=== PATIENT | female | born 1930 | race Hispanic/Latino ===

== ENCOUNTER 2016-06-04 19:31 | Emergency (ER) | payer MEDICARE, OTHER ==
[2016-06-04 20:07] VITALS: RESP 16
[2016-06-04] MEDS ORDERED: TDAP Vaccine 0.5 mL Syr IM ONE (20:34)
--- NOTE | 2016-06-04 20:37 | ED PDOC ---
Arrival/HPI - General Historian: Patient <Larry Villa - Last Filed: 06/04/16 23:35> <[place] - Last Filed: 06/04/16 23:47> - General Chief Complaint: Abnormal Skin Integrity Time Seen by Provider: 06/04/16 20:28 - History of Present Illness Narrative History of Present Illness (Text): 06/04/16 20:35 85 y/o female, pmh including htn/hyperlipidemia/hypothyroidism, not on any anticoagulant, last tetanus doesn't remember, c/o posterior head injury x 1 hour. Pt. stated that her shoe got caught, fall on the posterior head, no neck or back injury, no dizziness, no chest pain or shortness of breath, no palpitation, no numbness or tingling, no change in vision, no LOC, no neck or back pain, no other medical or psychological complaints. (Larry Villa) Past Medical History - Provider Review Nursing Documentation Reviewed: Yes - Cardiac Hx Hypertension: Yes - Pulmonary Hx Respiratory Disorders: No - Neurological Hx Neurological Disorder: No - HEENT Hx HEENT Disorder: No - Renal Hx Renal Disorder: No - Endocrine/Metabolic Other/Comment: THYROID DISEASE - Hematological/Oncological Hx Blood Disorders: No - Integumentary Hx Dermatological Disorder: No - Musculoskeletal/Rheumatological Hx Musculoskeletal Disorders: No - Gastrointestinal Hx Gastrointestinal Disorders: No - Genitourinary/Gynecological Hx Genitourinary Disorders: No - Psychiatric Hx Psychophysiologic Disorder: No Hx Substance Use: No <Larry Villa - Last Filed: 06/04/16 23:35> Family/Social History - Physician Review Nursing Documentation Reviewed: Yes Family/Social History: Unknown Family HX Smoking Status: Never Smoked Hx Alcohol Use: No Hx Substance Use: No <Larry Villa - Last Filed: 06/04/16 23:35> Allergies/Home Meds <Larry Villa - Last Filed: 06/04/16 23:35> <[place] - Last Filed: 06/04/16 23:47> Allergies/Adverse Reactions: Allergies No Known Allergies Allergy (Verified 06/04/16 20:00) Home Medications: Home Meds Medication Instructions Recorded Confirmed Diltiazem HCl [Diltiazem 24Hr Cd] 120 mg PO DAILY 06/04/16 06/04/16 Furosemide [Lasix] 20 mg PO BID 06/04/16 06/04/16 Levothyroxine [Synthroid] 50 mcg PO DAILY 06/04/16 06/04/16 Rosuvastatin Calcium [Crestor] 10 mg PO DAILY 06/04/16 06/04/16 Review of Systems - Review of Systems Constitutional: absent: Fatigue, Fevers Eyes: absent: Vision Changes ENT: absent: Hearing Changes Respiratory: absent: Cough, Sputum Cardiovascular: absent: Chest Pain Gastrointestinal: absent: Abdominal Pain, Nausea, Vomiting Skin: Laceration. absent: Rash, Pruritis, Skin Lesions, Abscess, Ulcer, Cellulitis Neurological: absent: Headache, Dizziness, Focal Weakness, Gait Changes, Speech Changes, Facial Droop, Disequilibrium, Seizure <Larry Villa Q - Last Filed: 06/04/16 23:35> Physical Exam Temperature: Afebrile Blood Pressure: Normal Pulse: Bradycardic Respiratory Rate: Normal Appearance: Positive for: Well-Appearing, Non-Toxic, Comfortable Pain Distress: None Mental Status: Positive for: Alert and Oriented X 3 - Systems Exam Head: Present: Normocephalic, Laceration (posterior occipital visible approx. 2cm irregular c-shaped laceration with no oozing or discharge) Pupils: Present: PERRL Extroacular Muscles: Present: EOMI Conjunctiva: Present: Normal Ears: Present: NORMAL TM, Normal Canal. No: Erythema Mouth: Present: Moist Mucous Membranes Nose (External): Present: Atraumatic. No: Abrasion, Contusion, Laceration Nose (Internal): Present: Normal Inspection, No Active Bleeding. No: Rhinorrhea , Septal Hematoma Neck: Present: Normal Range of Motion, Trachea Midline, Other (Cervical: no midline tenderness or step off, no paraspinal tenderness, no rash, no ecchymosis , FROM without limitation, sensation intact, motor 5/5, ). No: MIDLINE TENDERNESS, Paraspinal Tenderness, Lymphadenopathy Respiratory/Chest: Present: Clear to Auscultation, Good Air Exchange. No: Respiratory Distress, Accessory Muscle Use Cardiovascular: Present: Regular Rate and Rhythm, Normal S1, S2. No: Murmurs Abdomen: Present: Normal Bowel Sounds. No: Tenderness, Distention, Peritoneal Signs Back: Present: Normal Inspection, Other (Thoracic to LS spine: no midline tenderness or step off, no paraspinal tenderness, no rash, no ecchymosis, FROM without limitation, sensation intact, motor 5/5,). No: Midline Tenderness, Paraspinal Tenderness Upper Extremity: Present: Normal Inspection. No: Cyanosis, Edema Lower Extremity: Present: Normal Inspection. No: Edema Neurological: Present: GCS=15, CN II-XII Intact, Speech Normal Skin: Present: Warm, Dry, Normal Color. No: Rashes Psychiatric: Present: Alert, Oriented x 3, Normal Insight, Normal Concentration <Larry Villa - Last Filed: 06/04/16 23:35> Vital Signs Temp Pulse Resp BP Pulse Ox 06/04/16 20:02 98.8 F 58 L 16 150/70 95 Medical Decision Making - RAD Interpretation Resident Caregiver: Radiologist <Larry Villa - Last Filed: 06/04/16 23:35> <[place] - Last Filed: 06/04/16 23:47> ED Course and Treatment: 06/04/16 20:38 -CT head -tetanus -wound irrigate and clean, will staple 06/04/16 23:32 -CT Head show no acute findings. -sensation intact, motor 5/5, wound irrigate with 500cc of normal saline, clean with betadine, 1% lidocaine injected with 0.5cc locally, 5 kira with hemostasis obtained, bacitracin and gauze dressing, sensation intact, motor 5/5 , less than 1cc of blood loss. -Discharge home with bacitracin ointment, keep the dressing dry and clean, kira need to be removed by day 7, follow up with your own pmd within 2 days, return to the ER for any new or worsening signs or symptoms. (Larry Villa) - RAD Interpretation Radiology Orders: 06/04/16 20:34 HEAD W/O CONTRAST [CT] Stat Brain: There is moderate ventriculomegaly and cortical sulci widening consistent with generalized atrophy. There are areas of diminished density in the periventricular white matter bilaterally consistent with chronic small vessel ischemic changes. Espitia-white matter differentiation is intact and unremarkable. No evidence of acute intracranial bleed. Ventricles: See above. Bones/joints: No evidence of fracture. Soft tissues: Unremarkable. Sinuses: Unremarkable as visualized. No acute sinusitis. Mastoid air cells: Unremarkable as visualized. No mastoid effusion. IMPRESSION: 1. No evidence of fracture. No evidence of intracranial bleed. 2. Generalized atrophy and chronic small vessel ischemic changes. Thank you for allowing us to participate in the care of your patient. Dictated and Authenticated by: Nicolas Burkett MD 06/04/2016 11:24 PM Eastern Time ([place] & [place]) (Larry Villa) - Medication Orders Current Medication Orders: Discontinued Medications Tetanus/Reduced Diphtheria/Acell Pertussis (Boostrix Vaccine Inj) 0.5 ml IM .ONCE ONE Stop: 06/04/16 20:35 - PA / ACUTE CARE OCCUPATIONAL THERAPIST / Resident Statement JESUS has reviewed & agrees with the documentation as recorded. <Larry Villa - Last Filed: 06/04/16 23:35> - PA / ACUTE CARE OCCUPATIONAL THERAPIST / Resident Statement JESUS has reviewed & agrees with the documentation as recorded. JESUS has examined the patient and agrees with the treatment plan. <[place] - Last Filed: 06/04/16 23:47> Disposition/Present on Arrival - Present on Arrival Any Indicators Present on Arrival: No History of DVT/PE: No History of Uncontrolled Diabetes: No Urinary Catheter: No History of Decub. Ulcer: No History Surgical Site Infection Following: None - Disposition Have Diagnosis and Disposition been Completed?: Yes Disposition Time: 23:33 Patient Plan: Discharge <Larry Villa - Last Filed: 06/04/16 23:35> <[place] - Last Filed: 06/04/16 23:47> - Disposition Diagnosis: Fall, Laceration of scalp Disposition: HOME/ ROUTINE Patient Problems: Current Active Problems Problem Status Diagnosed Fall Acute Laceration of scalp Acute Condition: GOOD Additional Instructions: Discharge home with bacitracin ointment, keep the dressing dry and clean, kira need to be removed by day 7, follow up with your own pmd within 2 days, return to the ER for any new or worsening signs or symptoms. Prescriptions: Bacitracin 1 appl TP BID #1 tube Referrals: Heath Rogers MD [Primary Care Provider] - Follow up with primary Forms: WORK NOTE
[2016-06-04 23:50] VITALS: BP 163/80; PULSE 65; TEMP 98
[2016-06-04 23:51] VITALS: O2SAT 98
--- NOTE | 2016-06-05 10:11 | CT ---
PROCEDURE: CT HEAD WITHOUT CONTRAST. HISTORY: posterior head injury from fall with laceration COMPARISON: None available. TECHNIQUE: Axial computed tomography images were obtained through the head/brain without intravenous contrast. Radiation dose: Total exam DLP = 725 mGy-cm. This CT exam was performed using one or more of the following dose reduction techniques: Automated exposure control, adjustment of the mA and/or kV according to patient size, and/or use of iterative reconstruction technique. FINDINGS: HEMORRHAGE: No intracranial hemorrhage. BRAIN: No mass effect or edema. No atrophy or chronic microvascular ischemic changes. VENTRICLES: Unremarkable. No hydrocephalus. CALVARIUM: Unremarkable. PARANASAL SINUSES: Unremarkable as visualized. No significant inflammatory changes. MASTOID AIR CELLS: Unremarkable as visualized. No inflammatory changes. OTHER FINDINGS: The report concurs with the preliminary [facility] report IMPRESSION: No acute findings
== END 2016-06-04 23:51 | disposition home or self-care (01) ==
LOC: ED 19:31
DX: S01.01XA Laceration without foreign body of scalp, initial encounter (principal); W19.XXXA Unspecified fall, initial encounter; I10 Essential (primary) hypertension; E78.5 Hyperlipidemia, unspecified; E03.9 Hypothyroidism, unspecified

== ENCOUNTER 2016-06-12 17:59 | Emergency (ER) | payer MEDICARE, OTHER ==
--- NOTE | 2016-06-12 18:14 | ED PDOC ---
Arrival/HPI - General Time Seen by Provider: 06/12/16 18:11 Historian: Patient - History of Present Illness Narrative History of Present Illness (Text): 06/12/16 18:11 85yo female present in ED for staple removal. States kira was placed here a week ago. Denies fever, discharge from wound any other complaint. Past Medical History - Provider Review Nursing Documentation Reviewed: Yes - Cardiac Hx Hypertension: Yes - Pulmonary Hx Respiratory Disorders: No - Neurological Hx Neurological Disorder: No - HEENT Hx HEENT Disorder: No - Renal Hx Renal Disorder: No - Endocrine/Metabolic Other/Comment: THYROID DISEASE - Hematological/Oncological Hx Blood Disorders: No - Integumentary Hx Dermatological Disorder: No - Musculoskeletal/Rheumatological Hx Musculoskeletal Disorders: No - Gastrointestinal Hx Gastrointestinal Disorders: No - Genitourinary/Gynecological Hx Genitourinary Disorders: No - Psychiatric Hx Psychophysiologic Disorder: No Hx Substance Use: No Family/Social History - Physician Review Nursing Documentation Reviewed: Yes Family/Social History: Unknown Family HX Smoking Status: Never Smoked Hx Alcohol Use: No Hx Substance Use: No Allergies/Home Meds Allergies/Adverse Reactions: Allergies No Known Allergies Allergy (Verified 06/04/16 20:00) Home Medications: Home Meds Medication Instructions Recorded Confirmed Diltiazem HCl [Diltiazem 24Hr Cd] 120 mg PO DAILY 06/04/16 06/04/16 Furosemide [Lasix] 20 mg PO BID 06/04/16 06/04/16 Levothyroxine [Synthroid] 50 mcg PO DAILY 06/04/16 06/04/16 Rosuvastatin Calcium [Crestor] 10 mg PO DAILY 06/04/16 06/04/16 Review of Systems - Physician Review All systems were reviewed & negative as marked: Yes - Review of Systems Constitutional: Normal Eyes: Normal ENT: Normal Respiratory: Normal Cardiovascular: Normal Gastrointestinal: Normal Genitourinary Female: Normal Musculoskeletal: Normal Skin: Other (Staple removal) Neurological: Normal Endocrine: Normal Hemo/Lymphatic: Normal Psychiatric: Normal Physical Exam Vital Signs Reviewed: Yes Temperature: Afebrile Blood Pressure: Normal Pulse: Regular Respiratory Rate: Normal Appearance: Positive for: Well-Appearing, Non-Toxic, Comfortable Pain Distress: None Mental Status: Positive for: Alert and Oriented X 3 - Systems Exam Head: Present: Atraumatic, Normocephalic Pupils: Present: PERRL Extroacular Muscles: Present: EOMI Conjunctiva: Present: Normal Mouth: Present: Moist Mucous Membranes Neck: Present: Normal Range of Motion Respiratory/Chest: Present: Clear to Auscultation, Good Air Exchange. No: Respiratory Distress, Accessory Muscle Use Cardiovascular: Present: Regular Rate and Rhythm, Normal S1, S2. No: Murmurs Abdomen: Present: Normal Bowel Sounds. No: Tenderness, Distention, Peritoneal Signs Back: Present: Normal Inspection Upper Extremity: Present: Normal Inspection. No: Cyanosis, Edema Lower Extremity: Present: Normal Inspection. No: Edema Neurological: Present: GCS=15, CN II-XII Intact, Speech Normal Skin: Present: Warm, Dry, Normal Color, Other (5staples noted on the occipital scalp). No: Rashes Psychiatric: Present: Alert, Oriented x 3, Normal Insight, Normal Concentration Medical Decision Making ED Course and Treatment: 06/12/16 18:13 Staple area cleaned with betadine. 5staples removed using a staple removal. BAcitracine applied. Edges appear approximated. Pt tolerated. Disposition/Present on Arrival - Present on Arrival Any Indicators Present on Arrival: No History of DVT/PE: No History of Uncontrolled Diabetes: No Urinary Catheter: No History Surgical Site Infection Following: None - Disposition Have Diagnosis and Disposition been Completed?: Yes Diagnosis: Removal of staple Disposition: HOME/ ROUTINE Disposition Time: 18:15 Patient Plan: Discharge Condition: STABLE Discharge Instructions (ExitCare): Staple Care (ED) Additional Instructions: Keep area clean and dry Follow up with your Doctor Return to ED for any new or worsening symptoms Referrals: [facility] [Outside] - Follow up with primary
[2016-06-12 18:26] VITALS: PULSE 70; RESP 16; TEMP 97.8; BMI 28.3
[2016-06-12 18:27] VITALS: BP 152/98
[2016-06-12 18:29] VITALS: O2SAT 98
== END 2016-06-12 18:28 | disposition home or self-care (01) ==
LOC: ED 17:59
DX: Z48.02 Encounter for removal of sutures (principal)